=== PATIENT | female | born 2000 | race Caucasian/White ===

== ENCOUNTER 2018-07-15 19:43 | Emergency (ER) | payer BC ==
[~2018-07-15] VITALS: Ht 157.5 cm; Wt 90.7 kg
[2018-07-15 20:26] LABS: HEMATOCRIT 42.3 % (36.0-47.0); HEMOGLOBIN 14.6 g/dL (12.0-15.5); MEAN CORPUSCULAR HEMOGLOBIN 29 pg (25-35); MEAN CORPUSCULAR HGB CONC 35 g/dL (31-37); MEAN CORPUSCULAR VOLUME 85 fL (79-100); RED BLOOD COUNT 4.98 x10^6/uL (3.50-5.40); RED CELL DISTRIBUTION WIDTH 12.6 % (11.5-14.5); WHITE BLOOD COUNT 5.6 x10^3/uL (4.0-11.0)
[2018-07-15 20:27] LABS: BASO % 0 % (0-3); EOS % 0 % (0-3); LYMPH # 0.7 x10^3/uL (1.0-4.8); LYMPH % 13 % (24-48); MONO # 0.6 x10^3/uL (0.0-1.1); MONO % 10 % (0-9); NEUT # 4.3 x10^3uL (1.8-7.7); NEUT % 76 % (31-73); PLATELET COUNT 219 x10^3/uL (140-400)
[2018-07-15 20:40] LABS: CALCIUM 8.3 mg/dL (8.5-10.1); GFR 71.4; POTASSIUM 3.8 mmol/L (3.5-5.1)
[2018-07-15] MEDS ORDERED: ONDANSETRON PF 4 MG/2 ML VIAL. IV ONE ×2 (21:00→22:45)
[2018-07-15 21:09] LABS: BACTERIA,URINE FEW /HPF (0-FEW); BILIRUBIN,URINE NEG (NEG); CLARITY,URINE HAZY; COLOR,URINE YELLOW; GLUCOSE,URINE NEG (NEG); NITRITE,URINE NEG (NEG); SQUAMOUS EPITHELIAL CELL,UR MANY /LPF; UROBILINOGEN,URINE 0.2 mg/dL (0.2 mg/dL)
[2018-07-15 21:10] LABS: U PREG PATIENT NEGATIVE (NEG)
[2018-07-15] MEDS ORDERED: IOHEXOL 300 MG/ML 50 ML VIAL. IV ONE ×2 (21:45)
[2018-07-15] MEDS ORDERED: IOHEXOL 300 MG/ML 75 ML VIAL. IV ONE (21:45)
--- NOTE | 2018-07-15 22:30 | RAD ---
Examination: CT ANGIOGRAPHY CHEST History: chest pain, nausea
Gave Omni 300 100ml IV - pt 200 lb
Tolerated well Comparison/Correlation: None Findings: Axial images of the chest were obtained following IV contrast according to pulmonary arteriography protocol. Pulmonary arterial vasculature is normal with no thromboembolic disease. Thoracic aorta is unremarkable although this exam is not optimized for aortic assessment. No infiltrates or effusions. No suspicious pulmonary nodule or mass. Bony structures are unremarkable. Partially visualized upper abdomen is unremarkable. Impression: Normal CTA of the chest. No pulmonary arterial thromboembolic disease. Electronically signed by: Harrison Jensen MD (07/15/2018 10:26 PM) [facility]
[2018-07-15] MEDS ORDERED: KETOROLAC 30 MG/ML VIAL. IV ONE (22:45)
--- NOTE | 2018-07-15 22:56 | PHYS DOC ---
Adult General Chief Complaint Chief Complaint chest pain [place] [employer] HPI 17 years old female presented emergency department with chest pain described as electric worse only when she takes a deep breath associated with shortness of breath no fever no chills no urgency no frequency no hematuria Review of Systems Review of Systems Constitutional: Denies fever or chills [] Eyes: Denies change in visual acuity, redness, or eye pain [] HENT: Denies nasal congestion or sore throat [] Cardiovascular: No additional information not addressed in HPI [] GI: Denies abdominal pain, nausea, vomiting, bloody stools or diarrhea [] : Denies dysuria or hematuria [] Musculoskeletal: Denies back pain or joint pain [] Integument: Denies rash or skin lesions [] Neurologic: Denies headache, focal weakness or sensory changes [] Endocrine: Denies polyuria or polydipsia [] All other systems were reviewed and found to be within normal limits, except as documented in this note. Current Medications Current Medications Current Medications Medications (Trade) Dose Ordered Sig/Ellen Start Time Stop Time Status Last Admin Dose Admin Iohexol (Omnipaque 300 Mg/ml) 50 ml 1X ONCE 07/15/18 21:45 07/15/18 21:46 DC 07/15/18 21:54 50 ML Ketorolac Tromethamine (Toradol 30mg Vial) 30 mg 1X ONCE 07/15/18 22:45 07/15/18 22:46 DC Ondansetron HCl (Zofran) 4 mg 1X ONCE 07/15/18 22:45 07/15/18 22:46 DC Allergies Allergies Allergies Coded Allergies Type Severity Reaction Last Updated Verified No Known Drug Allergies 07/15/18 No Physical Exam Physical Exam Constitutional: Well developed, well nourished, no acute distress, non-toxic appearance. [] HENT: Normocephalic, atraumatic, bilateral external ears normal, oropharynx moist, no oral exudates, nose normal. [] Eyes: PERRLA, EOMI, conjunctiva normal, no discharge. [] Neck: Normal range of motion, no tenderness, supple, no stridor. [] Cardiovascular:Heart rate regular rhythm, no murmur [] Lungs & Thorax: Bilateral breath sounds clear to auscultation [] Abdomen: Bowel sounds normal, soft, no tenderness, no masses, no pulsatile masses. [] Skin: Warm, dry, no erythema, no rash. [] Back: No tenderness, no CVA tenderness. [] Extremities: No tenderness, no cyanosis, no clubbing, ROM intact, no edema. [] Neurologic: Alert and oriented X 3, normal motor function, normal sensory function, no focal deficits noted. [] Psychologic: Affect normal, judgement normal, mood normal. [] Current Patient Data Vital Signs Vital Signs Date Time Temp Pulse Resp B/P (MAP) Pulse Ox O2 Delivery O2 Flow Rate FiO2 07/15/18 21:15 101 20 119/65 (83) 97 Room Air 07/15/18 19:50 99.1 Lab Results Laboratory Tests Test 07/15/18 20:00 07/15/18 20:19 White Blood Count 5.6 x10^3/uL (4.0-11.0) Red Blood Count 4.98 x10^6/uL (3.50-5.40) Hemoglobin 14.6 g/dL (12.0-15.5) Hematocrit 42.3 % (36.0-47.0) Mean Corpuscular Volume 85 fL (79-100) Mean Corpuscular Hemoglobin 29 pg (25-35) Mean Corpuscular Hemoglobin Concent 35 g/dL (31-37) Red Cell Distribution Width 12.6 % (11.5-14.5) Platelet Count 219 x10^3/uL (140-400) Neutrophils (%) (Auto) 76 % (31-73) H Lymphocytes (%) (Auto) 13 % (24-48) L Monocytes (%) (Auto) 10 % (0-9) H Eosinophils (%) (Auto) 0 % (0-3) Basophils (%) (Auto) 0 % (0-3) Neutrophils # (Auto) 4.3 x10^3uL (1.8-7.7) Lymphocytes # (Auto) 0.7 x10^3/uL (1.0-4.8) L Monocytes # (Auto) 0.6 x10^3/uL (0.0-1.1) Eosinophils # (Auto) 0.0 x10^3/uL (0.0-0.7) Basophils # (Auto) 0.0 x10^3/uL (0.0-0.2) D-Dimer (Ria) 1.32 mg/L (0.00-0.50) H Sodium Level 137 mmol/L (136-145) Potassium Level 3.8 mmol/L (3.5-5.1) Chloride Level 101 mmol/L (98-107) Carbon Dioxide Level 22 mmol/L (21-32) Anion Gap 14 (6-14) Blood Urea Nitrogen 12 mg/dL (7-20) Creatinine 1.0 mg/dL (0.6-1.0) Estimated GFR (Cockcroft-Gault) 71.4 Glucose Level 92 mg/dL (70-99) Calcium Level 8.3 mg/dL (8.5-10.1) L Troponin I Quantitative < 0.017 ng/mL (0-0.055) Urine Collection Type Unknown Urine Color Yellow Urine Clarity Hazy Urine pH 6.0 Urine Specific Excel <=1.005 Urine Protein Neg (NEG-TRACE) Urine Glucose (UA) Neg mg/dL (NEG) Urine Ketones (Stick) Neg mg/dL (NEG) Urine Blood Mod (NEG) Urine Nitrite Neg (NEG) Urine Bilirubin Neg (NEG) Urine Urobilinogen Dipstick 0.2 mg/dL (0.2 mg/dL) Urine Leukocyte Esterase Neg (NEG) Urine RBC 6-10 /HPF (0-2) Urine WBC 1-4 /HPF (0-4) Urine Squamous Epithelial Cells Many /LPF Urine Bacteria Few /HPF (0-FEW) Urine Test Negative (NEG) EKG EKG Normal sinus rhythm[] Radiology/Procedures Radiology/Procedures [] Course & Med Decision Making Course & Med Decision Making Pertinent Labs and Imaging studies reviewed. (See chart for details) [] Final Impression Final Impression [] Problems: (1) Pleurisy Dragon Disclaimer Dragon Disclaimer This electronic medical record was generated, in whole or in part, using a voice recognition dictation system. TANA FERRELL MD Jul 15, 2018 22:56
[2018-07-15] MEDS ORDERED: ONDA4TAB7 PO (22:58)
[2018-07-15] MEDS ORDERED: PRED20TA PO (22:58)
[2018-07-15 23:34] VITALS: BP 103/44
--- NOTE | 2018-07-16 18:31 | RAD ---
Examination: CHEST AP ONLY History: Chest pain Comparison/Correlation: None Findings: AP frontal view of the chest was obtained with the patient upright. Heart size and pulmonary vasculature are normal. No infiltrate or pleural effusion. Bony structures are intact. No pneumothorax. Impression: No active disease. Electronically signed by: Harrison Jensen MD (07/16/2018 6:28 PM) [facility]
== END 2018-07-15 23:35 | disposition home or self-care (01) ==
LOC: ER 19:43
DX: R09.1 Pleurisy (principal)
CPT/HCPCS: 36415; 71045; 71275; 80048; 81001; 81025; 84484; 85025; 85379; 96374; 96375; 96376; 99284; J1885; J2405; Q9967

== ENCOUNTER 2019-01-07 22:11 | Emergency (ER) | payer OTHER, BC ==
[~2019-01-07] VITALS: Ht 157.5 cm; Wt 90.7 kg
[~2019-01-07 22:11] MED LIST: ONDA4TAB7 PO; PRED20TA PO
--- NOTE | 2019-01-07 22:16 | ED.ADGEN ---
Past History Past Medical History: No Pertinent History Past Surgical History: No Surgical History Alcohol Use: None Drug Use: None Adult General Chief Complaint Chief Complaint ".. I got hurt at the [facility] running to a emergency call.. 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 Pt. states she is unable to bear wt. because pain. Pt. denies other injury. Distal neurovascular intact. No history immunosuppression. No history of travel or specific ill contacts. Review of Systems Review of Systems Constitutional: Denies fever or chills [] Eyes: Denies change in visual acuity, redness, or eye pain [] HENT: Denies nasal congestion or sore throat [] Respiratory: Denies cough or shortness of breath [] Cardiovascular: No additional information not addressed in HPI [] GI: Denies abdominal pain, nausea, vomiting, bloody stools or diarrhea [] : Denies dysuria or hematuria [] Musculoskeletal: Denies back pain or joint pain [except]complaints of left leg pain Integument: Denies rash or skin lesions [] Neurologic: Denies headache, focal weakness or sensory changes [] Endocrine: Denies polyuria or polydipsia [] All other systems were reviewed and found to be within normal limits, except as documented in this note. Family History Family History Noncontributory Current Medications Current Medications Current Medications Medications (Trade) Dose Ordered Sig/[facility] Start Time Stop Time Status Last Admin Dose Admin Acetaminophen (Tylenol) 1,000 mg 1X ONCE 01/08/19 00:00 01/08/19 02:16 DC 01/08/19 00:20 1,000 MG Allergies Allergies Allergies Coded Allergies Type Severity Reaction Last Updated Verified No Known Drug Allergies 07/15/18 No Physical Exam Physical Exam Constitutional: Well developed, well nourished, moderately acute distress, non- toxic appearance. [] HENT: Normocephalic, atraumatic, bilateral external ears normal, oropharynx moist, no oral exudates, nose normal. [] Eyes: PERRLA, EOMI, conjunctiva normal, no discharge. [] Neck: Normal range of motion, no tenderness, supple, no stridor. [] Cardiovascular:Heart rate regular rhythm, no murmur [] Lungs & Thorax: Bilateral breath sounds clear to auscultation [] Abdomen: Bowel sounds normal, soft, no tenderness, no masses, no pulsatile masses. [] Skin: Warm, dry, no erythema, no rash. [] Back: No tenderness, no CVA tenderness. [] Extremities: Left leg tenderness, no cyanosis, no clubbing, ROM intact, left mid krishna edema. [] Neurologic: Alert and oriented X 3, normal motor function, normal sensory function, no focal deficits noted. [] Psychologic: Affect anxious, judgement normal, mood normal. [] Current Patient Data Vital Signs Vital Signs Date Time Temp Pulse Resp B/P (MAP) Pulse Ox O2 Delivery O2 Flow Rate FiO2 01/07/19 22:26 98.7 91 18 96 Room Air EKG EKG [] Radiology/Procedures Radiology/Procedures Dictation of x-ray shows no obvious fracture or dislocation[] Course & Med Decision Making Course & Med Decision Making Pertinent Labs and Imaging studies reviewed. (See chart for details) Ice, elevation, rest, Tylenol for pain. Follow-up primary care. Follow-up work comp. Return if any concerns. Michael wrap. Crutches [] Final Impression Final Impression 1. Sprain/Strain Lt. Tib/fib Dragon Disclaimer Dragon Disclaimer This electronic medical record was generated, in whole or in part, using a voice recognition dictation system. Discharge Summary Visit Information Final Diagnosis Problems Medical Problems: (1) Sprain and strain Status: Acute Brief Hospital Course Allergies Allergies Coded Allergies Type Severity Reaction Last Updated Verified No Known Drug Allergies 07/15/18 No Vital Signs Vital Signs Date Time Temp Pulse Resp B/P (MAP) Pulse Ox O2 Delivery O2 Flow Rate FiO2 01/07/19 22:26 98.7 91 18 96 Room Air Brief Hospital Course Ms. Leija is a 18 old female who presented with Lt lower leg pain. High sprain. Follow with Work comp. Discharge Information Condition at Discharge: Improved, Stable Disposition/Orders: D/C to Home Dischare Medications Current Medications Acetaminophen (Tylenol) 1,000 mg 1X ONCE PO Last administered on 01/08/19at 00:20; Admin Dose 1,000 MG; Start 01/08/19 at 00:00; Stop 01/08/19 at 02:16; Status DC Active Scripts Active Percocet 5-325 Mg Tablet (Oxycodone Hcl/Acetaminophen) 1 Each Tablet 1 Tab PO PRN Q6HRS PRN Zofran (Ondansetron Hcl) 4 Mg Tablet 1 Tab PO Q8HRS Prednisone 20 Mg Tablet 1 Tab PO DAILY Dragon Disclaimer This chart was dictated in whole or in part using Voice Recognition software in a busy, high-work load, and often noisy Emergency Department environment. It may contain unintended and wholly unrecognized errors or omissions. CHANTAL ROSALES MD Jan 07, 2019 22:16
[2019-01-07 22:26] VITALS: BP 124/64
[2019-01-07] MEDS ORDERED: OXYC1TAB15 PO (23:57)
[2019-01-08] MEDS: ACETAMINOPHEN 500 MG TABLET PO ONE (00:20)
--- NOTE | 2019-01-08 11:06 | RAD ---
EXAM: TIBIA FIBULA LEFT 2 VIEWS. HISTORY: Pain after injury.. COMPARISON: None. FINDINGS: No fractures are identified. The joint spaces and alignment of the knee and ankle appear maintained. IMPRESSION: 1. No fracture. Electronically signed by: Sally Burr MD (01/08/2019 11:03 AM) [facility]
== END 2019-01-08 00:24 | disposition home or self-care (01) ==
LOC: ER 22:11
DX: S83.8X2A Sprain of other specified parts of left knee, initial encounter (principal); X50.3XXA Overexertion from repetitive movements, initial encounter; Y93.02 Activity, running; Y92.143 Cell of prison as the place of occurrence of the external cause; Y99.8 Other external cause status
CPT/HCPCS: 73590; 99284

== ENCOUNTER → 2019-03-03 | Outpatient (CLI) | payer OTHER, BC ==
[~2019-03-03] MED LIST changes: +OXYC1TAB15 PO
--- NOTE | 2019-03-03 15:47 | RAD ---
EXAM: Left tibia and fibula, 2 views. HISTORY: Pain. Fall. COMPARISON: 01/07/2019 FINDINGS: 2 views of the tibia and fibula are obtained. There is no fracture, dislocation or subluxation. The ankle mortise intact. IMPRESSION: No acute osseous finding. Electronically signed by: Yuliana Stringer MD (03/03/2019 3:44 PM) [facility]
== END | disposition home or self-care (01) ==
LOC: PMG 14:42
PROVIDERS: ATTEND Registered Nurse
DX: M79.662 Pain in left lower leg (principal); W19.XXXA Unspecified fall, initial encounter; Y93.89 Activity, other specified; Y92.89 Other specified places as the place of occurrence of the external cause; Y99.8 Other external cause status
CPT/HCPCS: 73590

== ENCOUNTER 2019-07-04 04:49 | Emergency (ER) | payer BC, OTHER ==
[~2019-07-04] VITALS: Ht 157.5 cm; Wt 90.7 kg
[2019-07-04] MEDS ORDERED: KETOROLAC 15 MG/ML VIAL. IVP ONE (05:30)
[2019-07-04 05:52] LABS: BASO # 0.1 x10^3/uL (0.0-0.2); BASO % 1 % (0-3); EOS # 0.1 x10^3/uL (0.0-0.7); EOS % 1 % (0-3); HEMATOCRIT 42.6 % (36.0-47.0); HEMOGLOBIN 14.2 g/dL (12.0-15.5); LYMPH # 1.4 x10^3/uL (1.0-4.8); LYMPH % 15 % (24-48); MEAN CORPUSCULAR HEMOGLOBIN 30 pg (25-35); MEAN CORPUSCULAR HGB CONC 33 g/dL (31-37); MEAN CORPUSCULAR VOLUME 89 fL (79-100); MONO # 0.6 x10^3/uL (0.0-1.1); MONO % 7 % (0-9); NEUT # 7.1 x10^3uL (1.8-7.7); NEUT % 77 % (31-73); PLATELET COUNT 281 x10^3/uL (140-400); RED CELL DISTRIBUTION WIDTH 12.5 % (11.5-14.5); WHITE BLOOD COUNT 9.2 x10^3/uL (4.0-11.0)
[2019-07-04 05:57] LABS: BACTERIA,URINE FEW /HPF (0-FEW); BILIRUBIN,URINE NEG (NEG); CLARITY,URINE CLEAR; COLOR,URINE YELLOW; GLUCOSE,URINE NEG (NEG); NITRITE,URINE NEG (NEG); RBC,URINE OCC /HPF (0-2); SQUAMOUS EPITHELIAL CELL,UR MANY /LPF; UROBILINOGEN,URINE 0.2 mg/dL (0.2 mg/dL)
--- NOTE | 2019-07-04 05:59 | PHYS DOC ---
Past History Past Medical History: No Pertinent History (ANGELA THOMSON MD) Past Surgical History: No Surgical History (ANGELA THOMSON MD) Alcohol Use: None Drug Use: None (ANGELA THOMSON MD) Adult General Chief Complaint Chief Complaint: MENSTRUAL PAIN/CRAMPS HPI HPI Patient is a 18-year-old female presenting with right lower abdominal pain and vaginal bleeding. She has the Depo shot she says she has not had a period in 7 years she woke up tonight about an hour ago with sharp right side lower abdominal pain radiating to the vaginal area and then she went to the bathroom and had a large amount of vaginal bleeding she said she had these whole tampon this is very unusual for her. No fever denies any vaginal trauma recently. Pain is moderate sharp radiates as noted above has not tried anything for relief yet (ANGELA THOMSON MD) Review of Systems Review of Systems Constitutional: Denies fever or chills [] Eyes: Denies change in visual acuity, redness, or eye pain [] HENT: Denies nasal congestion or sore throat [] Musculoskeletal: Denies back pain or joint pain [] Integument: Denies rash or skin lesions [] Neurologic: Denies headache, focal weakness or sensory changes [] Endocrine: Denies polyuria or polydipsia [] All other systems were reviewed and found to be within normal limits, except as documented in this note. (ANGELA THOMSON MD) Current Medications Current Medications Current Medications Medications (Trade) Dose Ordered Sig/Ellen Start Time Stop Time Status Last Admin Dose Admin Ketorolac Tromethamine (Toradol 15mg Vial) 15 mg 1X ONCE 07/04/19 05:15 07/04/19 05:16 UNV (ANGELA THOMSON MD) Allergies Allergies Allergies Coded Allergies Type Severity Reaction Last Updated Verified No Known Drug Allergies 07/15/18 No (ANGELA THOMSON MD) Physical Exam Physical Exam Constitutional: Well developed, well nourished, no acute distress, non-toxic appearance. [] HENT: Normocephalic, atraumatic, bilateral external ears normal, oropharynx moist, no oral exudates, nose normal. [] Eyes: PERRLA, EOMI, conjunctiva normal, no discharge. [] Neck: Normal range of motion, no tenderness, supple, no stridor. [] Pulmonary: Normal respiratory effort no increased work of breathing no obvious chest wall trauma Abdomen: Bowel sounds normal, soft, mild right lower quadrant tenderness gu: no blood in vaginal vault. os closed. mild adnexal tenderness on the right. Skin: Warm, dry, no erythema, no rash. [] Extremities: No tenderness, no cyanosis, no clubbing, ROM intact, no edema. [] Neurologic: Alert and oriented X 3, normal motor function, normal sensory function, no focal deficits noted. [] Psychologic: Affect normal, judgement normal, mood normal. [] (ANGELA THOMSON MD) Current Patient Data Vital Signs Vital Signs Date Time Temp Pulse Resp B/P (MAP) Pulse Ox O2 Delivery O2 Flow Rate FiO2 07/04/19 04:49 98.7 94 18 97 Room Air Lab Results Laboratory Tests Test 07/04/19 04:59 POC Urine HCG, Qualitative hcg negative (Negative) (ANGELA THOMSON MD) Lab Results WET PREP Final YEAST NONE SEEN TRICHOMONAS NONE SEEN CLUE CELLS NONE SEEN WBCS OCCASIONAL RBCS NO RBCS SEEN SQUAMOUS EPS MODERATE Laboratory Tests Test 07/04/19 04:55 07/04/19 04:59 07/04/19 05:30 Urine Collection Type Unknown Urine Color Yellow Urine Clarity Clear Urine pH 5.5 Urine Specific [place]inn 1.025 Urine Protein Neg Urine Glucose (UA) Neg mg/dL Urine Ketones (Stick) Neg mg/dL Urine Blood Mod Urine Nitrite Neg Urine Bilirubin Neg Urine Urobilinogen Dipstick 0.2 mg/dL Urine Leukocyte Esterase Neg Urine RBC Occ /HPF Urine WBC 1-4 /HPF Urine Squamous Epithelial Cells Many /LPF Urine Bacteria Few /HPF Bedside Urine HCG, Qualitative hcg negative White Blood Count 9.2 x10^3/uL Red Blood Count 4.80 x10^6/uL Hemoglobin 14.2 g/dL Hematocrit 42.6 % Mean Corpuscular Volume 89 fL Mean Corpuscular Hemoglobin 30 pg Mean Corpuscular Hemoglobin Concent 33 g/dL Red Cell Distribution Width 12.5 % Platelet Count 281 x10^3/uL Neutrophils (%) (Auto) 77 % Lymphocytes (%) (Auto) 15 % Monocytes (%) (Auto) 7 % Eosinophils (%) (Auto) 1 % Basophils (%) (Auto) 1 % Neutrophils # (Auto) 7.1 x10^3uL Lymphocytes # (Auto) 1.4 x10^3/uL Monocytes # (Auto) 0.6 x10^3/uL Eosinophils # (Auto) 0.1 x10^3/uL Basophils # (Auto) 0.1 x10^3/uL Sodium Level 141 mmol/L Potassium Level 4.0 mmol/L Chloride Level 107 mmol/L Carbon Dioxide Level 23 mmol/L Anion Gap 11 Blood Urea Nitrogen 12 mg/dL Creatinine 1.0 mg/dL Estimated GFR (Cockcroft-Gault) 70.7 BUN/Creatinine Ratio 12 Glucose Level 106 mg/dL Calcium Level 8.8 mg/dL Total Bilirubin 0.2 mg/dL Aspartate Amino Transf (AST/SGOT) 17 U/L Alanine Aminotransferase (ALT/SGPT) 40 U/L Alkaline Phosphatase 76 U/L Total Protein 7.2 g/dL Albumin 4.0 g/dL Albumin/Globulin Ratio 1.3 Current Medications Medications (Trade) Dose Ordered Sig/Ellen Route PRN Reason Start Time Stop Time Status Last Admin Dose Admin Ketorolac Tromethamine (Toradol 15mg Vial) 15 mg 1X ONCE IVP 07/04/19 05:30 07/04/19 05:31 DC 07/04/19 05:41 (ABNER KEANE MD) EKG EKG [] (ANGELA THOMSON MD) Radiology/Procedures Radiology/Procedures [] (ANGELA THOMSON MD) Radiology/Procedures PROCEDURE: PELVIS COMPLETE Examination: Ultrasound pelvis HISTORY: History of pelvic pain COMPARISON: None available FINDINGS: The uterus measures 5.7 x 4.1 x 3.0 cm. The endometrium measures 5.1 mm in thickness. The right ovary measures 3.5 x 2.0 x 2.0. The left ovary measures 3.2 x 1.8 x 1.7 cm. Blood flow identified in the right and left ovaries Small follicles identified right and left ovaries. IMPRESSION: Unremarkable exam. PROCEDURE: CT ABD PELV W/ IV CONTRST ONLY PQRS Compliance statement: One or more of the following individualized dose reduction techniques were utilized for this examination: 1. Automated exposure control. 2. Adjustment of the mA and/or kV according to patient size. 3. Use of iterative reconstruction technique. Indication: Right-sided abdominal pain and nausea. TECHNIQUE: CT abdomen and pelvis with IV contrast with multiplanar reformats. COMPARISON: None FINDINGS: Heart is normal in size. No pericardial or pleural effusion. Clear lung bases. Liver, spleen, bladder, pancreas, adrenals and kidneys are within normal limits. No free pelvic fluid or ascites. No enlarged retroperitoneal or pelvic adenopathy. No bowel obstruction. Normal appendix. No pneumoperitoneum. No suspicious bony lesion. IMPRESSION: No bowel obstruction. Normal appendix. No nephrolithiasis. (ABNER KEANE MD) Course & Med Decision Making Course & Med Decision Making Pertinent Labs and Imaging studies reviewed. (See chart for details) []pending pelvic u/s, labs s/o starr 6 am low suspicion for torsion but will r/o. exam not c/w pid (ANGELA THOMSON MD) Course & Med Decision Making 6:30 AM: Care was assumed at 6 AM shift change, Patient reexamined, she has some diffuse right-sided abdominal discomfort, without any definite reproducible pelvic discomfort on my exam. Mendieta sign is absent. There is some mild right lower quadrant tenderness, CT will be obtained after discussion with the patient the risks and benefits. 7:35 AM:patient's condition remained stable. I discussed test results with the patient, the need for close outpatient follow-up with her [employer]IST, and return pr ecautions. (ABNER KEANE MD) Dragon Disclaimer Dragon Disclaimer This electronic medical record was generated, in whole or in part, using a voice recognition dictation system. (ANGELA THOMSON MD) Departure Departure: Impression: Primary Impression: Dysmenorrhea Additional Impressions: Pelvic pain in female Abdominal pain Disposition: HOME, SELF-CARE Condition: STABLE Referrals: KOBE AMOS DO (PCP) Patient Instructions: Abdominal Pain, Dysmenorrhea, Pelvic Pain, Female Additional Instructions: Ibuprofen 400-600 mg every 6 hours may help improve your symptoms. Scripts Ondansetron (ONDANSETRON ODT) 4 Mg Tab.rapdis 1 TAB PO PRN Q6-8HRS for N/V, #15 TAB Prov: ABNER KEANE MD 07/04/19 Problem Qualifiers ANGELA THOMSON MD Jul 04, 2019 05:59 ABNER KEANE MD Jul 04, 2019 06:33
[2019-07-04 06:04] LABS: ALBUMIN/GLOBULIN RATIO 1.3 (1.0-1.7); CALCIUM 8.8 mg/dL (8.5-10.1); GFR 70.7; TOTAL BILIRUBIN 0.2 mg/dL (0.2-1.0); TOTAL PROTEIN 7.2 g/dL (6.4-8.2)
--- NOTE | 2019-07-04 06:32 | RAD ---
Examination: Ultrasound pelvis HISTORY: History of pelvic pain COMPARISON: None available FINDINGS: The uterus measures 5.7 x 4.1 x 3.0 cm. The endometrium measures 5.1 mm in thickness. The right ovary measures 3.5 x 2.0 x 2.0. The left ovary measures 3.2 x 1.8 x 1.7 cm. Blood flow identified in the right and left ovaries Small follicles identified right and left ovaries. IMPRESSION: Unremarkable exam. Electronically signed by: Jose Carlos Posey MD (07/04/2019 6:29 AM) [facility]
[2019-07-04] MEDS ORDERED: CONTRAST GIVEN MC PRN (07:00)
[2019-07-04] MEDS ORDERED: ONDANSETRON PF 4 MG/2 ML VIAL. IVP ONE (07:30)
[2019-07-04] MEDS ORDERED: IOHEXOL 300 MG/ML 75 ML VIAL. IV ONE (07:30)
--- NOTE | 2019-07-04 07:30 | RAD ---
PQRS Compliance statement: One or more of the following individualized dose reduction techniques were utilized for this examination: 1. Automated exposure control. 2. Adjustment of the mA and/or kV according to patient size. 3. Use of iterative reconstruction technique. Indication: Right-sided abdominal pain and nausea. TECHNIQUE: CT abdomen and pelvis with IV contrast with multiplanar reformats. COMPARISON: None FINDINGS: Heart is normal in size. No pericardial or pleural effusion. Clear lung bases. Liver, spleen, bladder, pancreas, adrenals and kidneys are within normal limits. No free pelvic fluid or ascites. No enlarged retroperitoneal or pelvic adenopathy. No bowel obstruction. Normal appendix. No pneumoperitoneum. No suspicious bony lesion. IMPRESSION: No bowel obstruction. Normal appendix. No nephrolithiasis. Electronically signed by: Jose Marin DO (07/04/2019 7:27 AM) [facility]
[2019-07-04 07:32] VITALS: BP 127/65
[2019-07-04] MEDS ORDERED: ONDA4TAB12 PO (07:36)
[2019-07-06 22:07] LABS: CHLAMYDIA PROBE Negative (Negative)
== END 2019-07-04 07:43 | disposition home or self-care (01) ==
LOC: ER 04:49
DX: N94.6 Dysmenorrhea, unspecified (principal); R10.2 Pelvic and perineal pain
CPT/HCPCS: 36415; 74177; 76856; 80053; 81001; 81025; 85025; 87491; 87591; 96374; 96375; 99285; J1885; J2405; Q0111; Q9967